=== PATIENT | female | born 2000 | race Caucasian/White ===

== ENCOUNTER 2019-02-11 04:05 | Observation (INO) ==
[2019-02-11] MEDS ORDERED: WATER IVC ONE ×3 (06:52→12:00)
[2019-02-11] MEDS ORDERED: ACETYLCYSTEINE IVC ONE ×3 (06:52→12:00)
[2019-02-11] MEDS ORDERED: Acetylcysteine 10,000 MG in D5% in Water 1,000 ML IVC ONE (06:52)
[2019-02-11] MEDS ORDERED: D5 IVC ONE ×3 (06:52→12:00)
[2019-02-11 08:31] LABS: Basophils % 0.6 %; Eosinophils # 0.1 K/mcL (0.0-0.6); Eosinophils % 1.7 %; Hematocrit 35.2 % (35.3-44.9); Hemoglobin 12.4 g/dL (11.5-15.4); Immature Granulocytes % 0.3 % (0-4); Lymphocytes # 1.9 K/mcL (0.6-4.6); Lymphocytes % 28.7 %; Mean Corpuscular HGB Conc 35.2 g/dL (31.6-35.5); Mean Corpuscular Hemoglobin 31.2 pg (28.0-33.3); Mean Corpuscular Volume 88.4 fL (83.0-100.0); Mean Platelet Volume 10.6 fL (9.4-12.4); Monocytes # 0.7 K/mcL (0.0-1.3); Neutrophils # 3.8 K/mcL (1.6-8.9); Platelet Count 198 K/mcL (140-400); Red Blood Count 3.98 M/mcL (3.82-4.97); Red Cell Distribution Width 12.3 % (11.5-14.5); Segmented Neutrophils % 58.7 %; White Blood Count 6.5 K/mcL (4.3-11.1)
[2019-02-11 08:40] LABS: INR 1.3; Prothrombin Time 14.2 Seconds (9.4-12.1)
[2019-02-11] MEDS ORDERED: Naloxone 0.4 MG/ML INJ IVP PRN (08:47)
[2019-02-11] MEDS ORDERED: traMADol 50 MG TABLET PO PRN (08:47)
[2019-02-11] MEDS ORDERED: *HR* OxyCODONE Immed Rel 5 MG TABLET PO PRN (08:47)
[2019-02-11] MEDS ORDERED: Ondansetron 4 MG/2 ML VIAL IVP PRN (08:47)
[2019-02-11 08:50] LABS: Alanine Aminotransferase 7 Units/L (7-52); Albumin 4.1 g/dL (3.5-5.7); Albumin/Globulin Ratio 1.7 (1.1-2.2); Alkaline Phosphatase 50 Units/L (34-104); Aspartate Amino Transferase 12 Units/L (13-39); BUN/Creatinine Ratio 11 (6-26); Bilirubin,Total 2.2 mg/dL (0.3-1.0); Blood Urea Nitrogen 7 mg/dL (6-20); Carbon Dioxide 21 mEq/L (23-29); Chloride 105 mEq/L (98-107); Globulin 2.4 g/dL (2.4-3.5); Glucose 138 mg/dL (70-105); Osmolality,Calculated 284 (280-300); Potassium 3.2 mEq/L (3.5-5.1); Sodium 137 mEq/L (136-145); Total Protein 6.5 g/dL (6.4-8.9); eGFR For African Americans > 60 (> 60); eGFR For Non-African Americans > 60 (> 60)
[2019-02-11] MEDS: 0.9 % Sodium Chloride 1,000 ML IVC SCH ×2 (11:53→23:29)
[2019-02-11 13:36] LABS: Albumin 4.5 g/dL (3.5-5.7); Bilirubin,Direct 0.4 mg/dL (0.0-0.2); Bilirubin,Indirect 2.1 mg/dL (0.0-1.2); Bilirubin,Total 2.5 mg/dL (0.3-1.0); Globulin 2.3 g/dL (2.4-3.5); Total Protein 6.8 g/dL (6.4-8.9)
[2019-02-11 18:21] LABS: Acetaminophen < 10 mcg/mL (10-20); Alanine Aminotransferase 6 Units/L (7-52); Albumin 4.4 g/dL (3.5-5.7); Albumin/Globulin Ratio 1.8 (1.1-2.2); Alkaline Phosphatase 57 Units/L (34-104); Aspartate Amino Transferase 11 Units/L (13-39); BUN/Creatinine Ratio 7 (6-26); Bilirubin,Total 2.4 mg/dL (0.3-1.0); Blood Urea Nitrogen 5 mg/dL (6-20); Calcium 9.6 mg/dL (8.6-10.3); Carbon Dioxide 23 mEq/L (23-29); Chloride 108 mEq/L (98-107); Globulin 2.5 g/dL (2.4-3.5); Glucose 98 mg/dL (70-105); Osmolality,Calculated 285 (280-300); Potassium 3.8 mEq/L (3.5-5.1); Sodium 139 mEq/L (136-145); Total Protein 6.9 g/dL (6.4-8.9); eGFR For African Americans > 60 (> 60); eGFR For Non-African Americans > 60 (> 60)
[2019-02-12] MEDS ORDERED: WATER IVC ONE (03:50)
[2019-02-12] MEDS ORDERED: ACETYLCYSTEINE IVC ONE (03:50)
[2019-02-12] MEDS ORDERED: D5 IVC ONE (03:50)
[2019-02-12 05:11] LABS: Alanine Aminotransferase 6 Units/L (7-52); Albumin 3.8 g/dL (3.5-5.7); Albumin/Globulin Ratio 1.8 (1.1-2.2); Alkaline Phosphatase 52 Units/L (34-104); Aspartate Amino Transferase 10 Units/L (13-39); BUN/Creatinine Ratio 7 (6-26); Bilirubin,Total 1.6 mg/dL (0.3-1.0); Blood Urea Nitrogen 4 mg/dL (6-20); Calcium 8.8 mg/dL (8.6-10.3); Carbon Dioxide 20 mEq/L (23-29); Chloride 111 mEq/L (98-107); Globulin 2.1 g/dL (2.4-3.5); Glucose 91 mg/dL (70-105); Osmolality,Calculated 282 (280-300); Potassium 3.7 mEq/L (3.5-5.1); Sodium 138 mEq/L (136-145); Total Protein 5.9 g/dL (6.4-8.9); eGFR For African Americans > 60 (> 60); eGFR For Non-African Americans > 60 (> 60)
[2019-02-12 06:55] LABS: Hepatitis B Surface Antigen Nonreactive (Nonreactive)
[2019-02-12 07:29] LABS: Hepatitis A Antibody IgM Nonreactive (Nonreactive)
[2019-02-12 07:38] LABS: Hepatitis C Virus Antibody Nonreactive (Nonreactive)
[2019-02-12] MEDS: 0.9 % Sodium Chloride 1,000 ML IVC SCH (07:45)
[2019-02-12 07:47] LABS: Hepatitis B Core IgM Nonreactive (Nonreactive)
[2019-02-12 07:53] VITALS: BP 92/58
[2019-02-12] MEDS ORDERED: Ibuprofen 800 MG TABLET PO ONE (09:43)
[2019-02-12] MEDS ORDERED: FLU Vac QV 19-20 (6Month+)/PF 0.5 ML SYRINGE IM ONE (10:13)
== END 2019-02-12 10:38 | disposition home or self-care (01) ==
LOC: 2ANU → SUATTDRO 06:04
PROVIDERS: ADMIT Internal Medicine; ATTEND Family Medicine

== ENCOUNTER → 2021-06-23 20:30 | Observation (INO) ==
[~2021-06-23 20:30] MED LIST: Famotidine 20 MG/2 ML VIAL IVP ONE; Ondansetron 4 MG/2 ML VIAL IVP ONE; Ringers Solution, Lactated 1,000 ML IVC ONE
== END | disposition home or self-care (01) ==
LOC: 1NENULAB
PROVIDERS: ADMIT Student in an Organized Health Care Education/Training Program; ATTEND Student in an Organized Health Care Education/Training Program

== ENCOUNTER 2021-10-16 07:52 | Inpatient (IN) ==
[2021-10-16] MEDS ORDERED: Metoclopramide 10 MG/2 ML VIAL IVP PRN (08:52)
[2021-10-16] MEDS ORDERED: Naloxone 0.4 MG/ML INJ IVP PRN ×2 (08:52→14:31)
[2021-10-16] MEDS ORDERED: Famotidine 20 MG/2 ML VIAL IVP PRN (08:52)
[2021-10-16] MEDS ORDERED: *HR* Nalbuphine 10 MG/ML AMPUL IV PRN (08:59)
[2021-10-16] MEDS ORDERED: miSOPROStoL 25 MCG TABLET PO PRN (09:08)
[2021-10-16 09:23] LABS: Basophils % 0.2 %; Eosinophils # 0.2 K/mcL (0.0-0.6); Eosinophils % 2.4 %; Hematocrit 28.9 % (35.3-44.9); Hemoglobin 9.3 g/dL (11.5-15.4); Immature Granulocytes % 0.7 % (0-4); Lymphocytes # 1.7 K/mcL (0.6-4.6); Lymphocytes % 17.6 %; Mean Corpuscular HGB Conc 32.2 g/dL (31.6-35.5); Mean Corpuscular Hemoglobin 26.5 pg (28.0-33.3); Mean Corpuscular Volume 82.3 fL (83.0-100.0); Mean Platelet Volume 10.6 fL (9.4-12.4); Monocytes # 0.7 K/mcL (0.0-1.3); Monocytes % 7.6 %; Platelet Count 143 K/mcL (140-400); Red Blood Count 3.51 M/mcL (3.82-4.97); Red Cell Distribution Width 13.2 % (11.5-14.5); Segmented Neutrophils % 71.5 %; White Blood Count 9.8 K/mcL (4.3-11.1)
[2021-10-16 09:41] LABS: Influenza A PCR Negative (Negative); Influenza B PCR Negative (Negative); Resp. Syncytial Virus PCR Negative (Negative)
[2021-10-16 10:01] LABS: Amphetamine Screen,Urine Negative ng/mL (Cutoff=1000); Barbiturate Screen,Urine Negative ng/mL (Cutoff=200); Benzodiazepines Screen,Urine Negative ng/mL (Cutoff=200); Cannabinoid Screen,Urine Positive ng/mL (Cutoff = 50); Cocaine Screen,Urine Negative ng/mL (Cutoff= 300); Opiate Screen,Urine Negative ng/mL (Cutoff=300); Phencyclidine Screen,Urine Negative ng/mL (Cutoff=25)
[2021-10-16 10:02] LABS: SARS-CoV-2 by PCR (In House) Negative (Negative)
[2021-10-16] MEDS: Ringers Solution, Lactated 1,000 ML IVC SCH ×2 (14:08→15:12)
[2021-10-16] MEDS: Oxytocin 30 UNIT/503 ML BAG IVC SCH (14:09)
[2021-10-16] MEDS ORDERED: EPHEDrine 50 MG/ML VIAL IVP PRN (14:31)
[2021-10-16] MEDS ORDERED: Ropivacaine/PF 0.2% 20 ML VIAL EP ONE (14:31)
[2021-10-16] MEDS ORDERED: *HR* FentaNYL (PF) 100 MCG/2 ML VIAL EP ONE (14:31)
[2021-10-16] MEDS ORDERED: Ondansetron 4 MG/2 ML VIAL IVP PRN (14:31)
[2021-10-16] MEDS ORDERED: Epidural Premix (fent/bupiv) 110 ML EP ONE (14:34)
[2021-10-16] MEDS ORDERED: Epidural Premix (fent/bupiv) 110 ML EP SCH (14:45)
[2021-10-17] MEDS ORDERED: Ropivacaine/PF 0.2% 20 ML VIAL ONE (07:57)
[2021-10-17] MEDS ORDERED: *HR* FentaNYL (PF) 100 MCG/2 ML VIAL ONE (07:57)
[2021-10-17] MEDS ORDERED: Methylergonovine 0.2 MG/ML AMPUL IM ONE (09:45)
[2021-10-17] MEDS: Oxytocin 30 UNIT/503 ML BAG IVC SCH (11:17)
[2021-10-17] MEDS ORDERED: Measles/Mumps/Rubella Vacc 0.5 ML VIAL SQ PRN (12:04)
[2021-10-17] MEDS ORDERED: Lanolin 7 G OINT...G. TP PRN (12:04)
[2021-10-17] MEDS ORDERED: Benzocaine/Menthol 56 GM AEROSOL SPRAY TP PRN (12:04)
[2021-10-17] MEDS ORDERED: Ondansetron ODT 4 MG TAB.RAPDIS SL PRN (12:04)
[2021-10-17] MEDS ORDERED: Rho Immune Globulin 1,500 UNIT SYRINGE IM PRN (12:04)
[2021-10-17] MEDS ORDERED: Oxytocin 30 UNIT/503 ML BAG IVC SCH (12:04)
[2021-10-17] MEDS: Acetaminophen 325 MG TABLET PO SCH ×2 (12:18→20:08)
[2021-10-17] MEDS ORDERED: *HR* FentaNYL (PF) 100 MCG/2 ML VIAL IVP ONE (12:35)
[2021-10-17] MEDS ORDERED: *HR* OxyCODONE/APAP 5/325 TABLET PO PRN (13:01)
[2021-10-17] MEDS: Ibuprofen 600 MG TABLET PO SCH ×2 (13:05→20:08)
[2021-10-17] MEDS ORDERED: Ibuprofen 600 MG TABLET PO SCH (14:33)
[2021-10-18] MEDS: Acetaminophen 325 MG TABLET PO SCH (03:45)
[2021-10-18] MEDS: Ibuprofen 600 MG TABLET PO SCH (03:46)
[2021-10-18 04:27] LABS: Basophils % 0.2 %; Eosinophils # 0.3 K/mcL (0.0-0.6); Eosinophils % 1.7 %; Hematocrit 28.9 % (35.3-44.9); Immature Granulocytes % 0.5 % (0-4); Lymphocytes # 1.9 K/mcL (0.6-4.6); Lymphocytes % 12.3 %; Mean Corpuscular HGB Conc 31.1 g/dL (31.6-35.5); Mean Corpuscular Volume 83.5 fL (83.0-100.0); Mean Platelet Volume 11.1 fL (9.4-12.4); Monocytes % 6.7 %; Neutrophils # 12.2 K/mcL (1.6-8.9); Platelet Count 141 K/mcL (140-400); Red Blood Count 3.46 M/mcL (3.82-4.97); Red Cell Distribution Width 13.3 % (11.5-14.5); Segmented Neutrophils % 78.6 %
[2021-10-18 04:33] LABS: White Blood Count 15.5 K/mcL (4.3-11.1)
[2021-10-18 07:22] VITALS: BP 100/65; PULSE 70; TEMP 98; O2SAT 100
[2021-10-18] MEDS ORDERED: Prenatal Vit/FA 1 EACH TABLET PO SCH (09:00)
== END 2021-10-18 14:03 | disposition home or self-care (01) | DRG 560 ==
LOC: 1NENULAB 07:52 → 1NENUOBS 10-17 14:56
PROVIDERS: ADMIT Obstetrics & Gynecology; ATTEND Obstetrics & Gynecology